=== PATIENT | female | born 2000 | race Caucasian/White ===

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

== ENCOUNTER → 2021-11-17 | Outpatient (CLI) | payer OTHER ==
--- NOTE | 2021-11-17 20:02 | NM ---
EXAMINATION TYPE: NM hepatobiliary w EF DATE OF EXAM: 11/17/2021 COMPARISON: None HISTORY: 21-year-old female R10.11, right upper quadrant pain. TECHNIQUE: After the intravenous administration of 4.4 mCi Tc 99m Mebrofenin hepatobiliary scintigrap hy is performed. Immediate images post injection. FINDINGS: There is satisfactory initial accumulation of tracer by the liver. The gallbladder is visualized wit hin 8 minutes. The small bowel activity is noted within 4 minutes. At one hour, 8 ounces of oral en sure plus is given to mimic CCK and gallbladder ejection fraction is calculated at 73 %, in the milton l range. IMPRESSION: No scintigraphic evidence for acute/chronic cholecystitis or biliary dyskinesia.
== END | disposition home or self-care (01) ==
LOC: RADNMMAIN 13:06
PROVIDERS: ATTEND Family Medicine
DX: R10.11 Right upper quadrant pain (principal)
CPT/HCPCS: 78226; A9537

== ENCOUNTER → 2022-01-08 | Outpatient (CLI) | payer OTHER ==
--- NOTE | 2022-01-09 07:56 | US ---
EXAMINATION TYPE: US gallbladder DATE OF EXAM: 01/08/2022 COMPARISON: Ultrasound abdomen August 21, 2017 CLINICAL HISTORY: K81.1 CHOLECYSTITIS. EXAM MEASUREMENTS: Liver Length: 15.1 cm Gallbladder Wall: 0.1 cm CBD: 0.4 cm Right Kidney: 10.2 x 5.0 x 4.7 cm Pancreas: Obscured by bowel gas Liver: Increased attenuation, decreased visualization of vessels suggestive of fatty infiltrate Gallbladder: Possible sludge Evidence for sonographic Alba's sign: no CBD: wnl Right Kidney: wnl Suboptimal evaluation of pancreas on initial images due to overlying bowel gas. IVC is seen near the hepatic dome. Visualized liver remains heterogeneously hyperechoic. Evaluation for focal masses subop timal due to the heterogeneity. No adjacent ascites. No right-sided hydronephrosis. Gallbladder not c ompletely anechoic could reflect small degree of sludge versus artifact, latter is favored. No shadow ing mobile gallstones. No pericholecystic fluid or abnormal gallbladder wall thickening. IMPRESSION: No shadowing mobile gallstones or ultrasound evidence for acute cholecystitis. Fatty infi ltrative hepatocellular disease is present and is new or more prominent from prior. Correlate clinica lly and with liver lab values.
== END | disposition home or self-care (01) ==
LOC: RADUSWWP 15:52
PROVIDERS: ATTEND Surgery
DX: K76.0 Fatty (change of) liver, not elsewhere classified (principal)
CPT/HCPCS: 76705

== ENCOUNTER 2022-02-09 06:03 | Day surgery (SDC) | payer OTHER ==
[2022-02-04 15:44] VITALS: BMI 44.2
[~2022-02-09 06:03] MED LIST: ACETAMINOPHEN TAB 500 MG TAB PO PRN; DEXAMETHASONE SOD PHOSPHATE 4 MG/ML 1 ML VIAL IV ONE; HEPARIN SODIUM,PORCINE/PF 5,000 UNIT/0.5 ML SYRINGE SQ PRN; LACTATED RINGERS 1,000 ML IV SCH; LIDOCAINE 1% (10MG/ML) FOR IV START INTRADERMA PRN; ONDANSETRON 4 MG/2 ML VIAL IVP ONE; SCOPOLAMINE 1 MG/72 HR PATCH TRANSDERM ONE
[2022-02-09] MEDS ORDERED: HYDROmorphone 0.5 MG/0.5 ML SYRINGE IVP PRN (07:00)
[2022-02-09 07:01] LABS: Basophils # (A) 0.1 k/uL (0-0.2); Basophils % (A) 1 %; Eosinophils # (A) 0.3 k/uL (0-0.7); Eosinophils % (A) 3 %; HCT 43.5 % (34.0-46.0); HGB 14.3 gm/dL (11.4-16.0); Lymphocytes # (A) 3.1 k/uL (1.0-4.8); Lymphocytes % (A) 32 %; MCH 29.9 pg (25.0-35.0); MCHC 32.8 g/dL (31.0-37.0); Mean Platelet Volume 7.7; Monocytes # (A) 0.7 k/uL (0-1.0); Monocytes % (A) 7 %; Neutrophils # (A) 5.3 k/uL (1.3-7.7); Neutrophils % (A) 55 %; Platelet Count 365 k/uL (150-450); RBC 4.78 m/uL (3.80-5.40); RDW 13.3 % (11.5-15.5); WBC 9.7 k/uL (3.8-10.6)
[2022-02-09 07:15] LABS: African American GFR (CKD) >90 (>60 ml/min/1.73 sqM); Anion Gap 7 mmol/L; Blood Urea Nitrogen 9 mg/dL (7-17); Calcium 9.5 mg/dL (8.4-10.2); Carbon Dioxide 24 mmol/L (22-30); Chloride 109 mmol/L (98-107); Glucose 92 mg/dL (74-99); Non-African American GFR(CKD) >90 (>60 ml/min/1.73 sqM); Potassium 3.8 mmol/L (3.5-5.1); Sodium 140 mmol/L (137-145)
[2022-02-09] MEDS ORDERED: BUPIVACAIN-EPI 0.25%-1:200,000 30 ML VIAL SQ ONE ×2 (07:40→08:17)
[2022-02-09] MEDS ORDERED: HYDROmorphone (PF) 1 MG/ML ONE (07:49)
[2022-02-09] MEDS ORDERED: fentaNYL (PF) 50 MCG/ML 2 ML AMP ONE (07:49)
[2022-02-09] MEDS ORDERED: PROPOFOL 10 MG/ML 20 ML VIAL IV ONE (07:49)
[2022-02-09] MEDS ORDERED: LIDOCAINE 2% INJ 20 MG/ML (2 ML VIAL) ONE (07:49)
[2022-02-09] MEDS ORDERED: NEOSTIGMINE 1 MG/ML 10 ML VIAL ONE (07:49)
[2022-02-09] MEDS ORDERED: ROCURONIUM 10 MG/ML (5 ML VIAL) IV ONE (07:49)
[2022-02-09] MEDS ORDERED: SUCCINYLCHOLINE CHLORIDE 200 MG/10 ML VIAL IV ONE (07:49)
[2022-02-09] MEDS ORDERED: LIDOCAINE 4% LTA KIT (4 ML) TOPICAL ONE (07:49)
[2022-02-09] MEDS ORDERED: MIDAZOLAM 2 MG/2 ML VIAL ONE (07:49)
[2022-02-09] MEDS ORDERED: GLYCOPYRROLATE 0.2 MG/ML 2 ML VIAL ONE (07:49)
[2022-02-09] MEDS ORDERED: ALBUTEROL HFA INHALER INHALATION ONE (07:49)
--- NOTE | 2022-02-09 08:40 | P.GSHP ---
History of Present Illness H&P Date: 02/09/22 Chief Complaint: Right upper quadrant pain The 21-year-old female with history of quadrant pain. Patient's found have biliary dyskinesia. She presents today for laparoscopic cholecystectomy. Past Medical History Past Medical History: Asthma, Cancer, GERD/Reflux, Sleep Apnea/CPAP/BIPAP Additional Past Medical History / Comment(s): Hx Leukemia in 2018. "Beginnings of Scoliosis and Arthritis, not officially diagnosed". No current CPAP use. History of Any Multi-Drug Resistant Organisms: None Reported Past Surgical History: Orthopedic Surgery Additional Past Surgical History / Comment(s): Bilateral urethral reimplantation, left foot reconstruction, multiple spinal taps. Past Anesthesia/Blood Transfusion Reactions: Motion Sickness Past Psychological History: Anxiety, Bipolar Additional Psychological History / Comment(s): Schizophrenia. Smoking Status: Never smoker Past Alcohol Use History: None Reported Past Drug Use History: Marijuana Additional Drug Use History / Comment(s): Marijuana use daily for pain. Aware no use 24 hrs prior to procedure. - Past Family History Mother Family Medical History: No Reported History Medications and Allergies Home Medications Medication Instructions Recorded Confirmed Type Albuterol Inhaler [Ventolin Hfa 1 - 2 puff INHALATION Q6H PRN 08/21/17 02/04/22 History Inhaler] Beclomethasone Dipropionate [Qvar 1 puff INHALATION BID 08/21/17 02/04/22 History 80 mcg] Advair (Unknown Dose) 1 puff INHALATION BID 02/04/22 02/04/22 History Albuterol Sulfate [Proair Hfa] 1 - 2 puff INHALATION BID 02/04/22 02/04/22 History Mometasone Furoate [Asmanex] 100 mcg IH BID 02/04/22 02/04/22 History Omeprazole [PriLOSEC] 40 mg PO HS 02/04/22 02/09/22 History Tiotropium 2.5 Mcg/Puff [Spiriva 1 puff INHALATION BID 02/04/22 02/04/22 History Respimat 2.5 Mcg] Allergies Allergy/AdvReac Type Severity Reaction Status Date / Time clindamycin Allergy Anaphylaxis Verified 02/09/22 06:16 nitrofurantoin Allergy Anaphylaxis Verified 02/09/22 06:16 Surgical - Exam Vital Signs Temp Pulse Resp BP Pulse Ox 98.2 F 102 H 20 131/88 97 02/09/22 06:28 02/09/22 06:28 02/09/22 06:28 02/09/22 06:28 02/09/22 06:28 - General well developed, well nourished, no distress - Eyes PERRL - ENT normal pinna - Neck no masses - Respiratory normal expansion - Cardiovascular Rhythm: regular - Abdomen Abdomen: soft, non tender Results - Labs 02/09/22 06:50 02/09/22 06:50 Abnormal Lab Results - Last 24 Hours (Table) 02/09/22 Range/Units 06:50 Chloride 109 H (98-107) mmol/L Diabetes panel 02/09/22 Range/Units 06:50 Sodium 140 (137-145) mmol/L Potassium 3.8 (3.5-5.1) mmol/L Chloride 109 H (98-107) mmol/L Carbon Dioxide 24 (22-30) mmol/L BUN 9 (7-17) mg/dL Creatinine 0.83 (0.52-1.04) mg/dL Glucose 92 (74-99) mg/dL Calcium 9.5 (8.4-10.2) mg/dL Calcium panel 02/09/22 Range/Units 06:50 Calcium 9.5 (8.4-10.2) mg/dL Pituitary panel 02/09/22 Range/Units 06:50 Sodium 140 (137-145) mmol/L Potassium 3.8 (3.5-5.1) mmol/L Chloride 109 H (98-107) mmol/L Carbon Dioxide 24 (22-30) mmol/L BUN 9 (7-17) mg/dL Creatinine 0.83 (0.52-1.04) mg/dL Glucose 92 (74-99) mg/dL Calcium 9.5 (8.4-10.2) mg/dL Adrenal panel 02/09/22 Range/Units 06:50 Sodium 140 (137-145) mmol/L Potassium 3.8 (3.5-5.1) mmol/L Chloride 109 H (98-107) mmol/L Carbon Dioxide 24 (22-30) mmol/L BUN 9 (7-17) mg/dL Creatinine 0.83 (0.52-1.04) mg/dL Glucose 92 (74-99) mg/dL Calcium 9.5 (8.4-10.2) mg/dL Assessment and Plan Assessment: Right upper quadrant pain Biliary dyskinesia We'll perform laparoscopic cholecystectomy
--- NOTE | 2022-02-09 08:42 | P.OP ---
Date of Procedure: 02/09/22 Preoperative Diagnosis: Biliary dyskinesia Postoperative Diagnosis: Biliary dyskinesia Procedure(s) Performed: Laparoscopic cholecystectomy Anesthesia: DINAH Surgeon: Ton Arreguin Estimated Blood Loss (ml): 5 Pathology: other (Gallbladder) Condition: stable Disposition: PACU Description of Procedure: The patient was placed on the operating table. The patient received a general endotracheal tube anesthesia. The patients abdomen was prepped and draped in the usual sterile fashion. Through an infraumbilical stab incision, the fascia of the anterior abdominal wall was grasped with a pair of Kochers and then the Veress needle was placed in the peritoneal cavity. Position of the Veress needle was confirmed with positive drop test. The abdomen was then insufflated. After adequate insufflation, the 10 mm trocar was placed in the peritoneal cavity. Following this the laparoscope was placed in the peritoneal cavity. The patient was placed in the head-up, right side up position and then a 5 mm trocar was placed in the right lateral and right subcostal position under direct visualization. A 8 mm trocar was placed in the epigastric position. The gallbladder was grasped in the fundus and infundibulum. Traction on the gallbladder was placed in the lateral and the cephalad positions. The triangle of Calot was visualized.. The cystic duct was bluntly dissected until the union of the cystic duct and common bile duct was seen. A critical view of safety was achieved. The cystic duct was then divided and sealed with the Harmonic scissors. A PDS Endoloop was then placed throughout the cystic duct stump. The cystic artery divided and sealed with the Harmonic scissors. The gallbladder was then removed from the liver bed using Harmonic scissors. The gallbladder was then extracted through the epigastric port site. Operative field was checked for any bleeding spots and Harmonic scissors was used to coagulate the liver bed. The abdomen was irrigated. The trocars were removed. The skin was closed using interrupted 3-0 Vicryl suture. Dermabond dressing were applied. The patient tolerated the procedure well.
[2022-02-09 08:54] VITALS: TEMP 97.1
[2022-02-09] MEDS ORDERED: LACTATED RINGERS 1,000 ML IV ONE (09:27)
[2022-02-09] MEDS ORDERED: ONDANSETRON 4 MG/2 ML VIAL ONE (09:56)
[2022-02-09] MEDS ORDERED: ONDANSETRON 4 MG/2 ML VIAL IVP ONE (09:58)
[2022-02-09] MEDS ORDERED: ALBUTEROL NEBULIZED (CONC) 5 MG, SODIUM CHLORIDE 0.9% NEBULIZ 3 ML INHALATION STA ×2 (10:59)
[2022-02-09] MEDS ORDERED: IBUPROFEN 200 MG TAB PO ONE (11:01)
[2022-02-09] MEDS ORDERED: ALBUTEROL NEB (CONC) 2.5 MG/0.5 ML INHALATION ONE (11:03)
[2022-02-09 11:47] VITALS: RESP 16
[2022-02-09 12:33] VITALS: PULSE 95
[2022-02-09 12:50] VITALS: BP 107/69
== END 2022-02-09 13:29 | disposition home or self-care (01) ==
LOC: OR 06:03
PROVIDERS: ATTEND Surgery
DX: K81.1 Chronic cholecystitis (principal); J45.909 Unspecified asthma, uncomplicated; K21.9 Gastro-esophageal reflux disease without esophagitis; G47.30 Sleep apnea, unspecified; F20.9 Schizophrenia, unspecified; Z85.6 Personal history of leukemia; Z79.51 Long term (current) use of inhaled steroids; Z79.899 Other long term (current) drug therapy; Z88.3 Allergy status to other anti-infective agents
CPT/HCPCS: 94640; 81025; 88304; 80048; 85025; 47562; J2250; J0330; J1100; J2710; J0690; J2405; J3010; J1170 ×2; J2704; J1644; J2001

== ENCOUNTER 2023-09-08 17:47 | Emergency (ER) | payer OTHER ==
--- NOTE | 2023-09-08 18:17 | ED ---
Fall HPI - General Source: patient, family, RN notes reviewed Mode of arrival: ambulatory Limitations: no limitations <Rani Wing - Last Filed: 09/08/23 18:16> - General Source: patient, family, RN notes reviewed, old records reviewed Mode of arrival: ambulatory Limitations: no limitations - History of Present Illness MD Complaint: fall -: days(s) Fall From: standing When Fall Occurred: 1-3 hours SOUS CHEF Fall Witnessed: yes, by family Place Fall Occurred: home Loss of Consciousness: none Prolonged Down Time?: no Symptoms Prior to Fall: none Location: head Severity: moderate Severity scale (1-10): 4 Quality: burning Context: tripped/slipped Associated Symptoms: headache, neck pain <Konstantin Lopez - Last Filed: 09/16/23 00:10> - General Stated Complaint: Fall, head injury Time Seen by Provider: 09/08/23 18:16 - History of Present Illness Initial Comments: Quick note: Patient is a 23-year-old female presented to ER with chief complaint of a head injury. She states she slipped on a trash bag on the floor and hit her head on the ground. Reports she blacked out. Denies any blood thinner use. Family states that she is acting extremely abnormal and having difficulty finding words. (Rani Wing) This is a 23-year-old female to the ER for evaluation of head injury, patient did fall hitting her head and blacked out. Patient complains of headache with loss of consciousness. Patient denies any other injury aside from hitting her head (Konstantin Lopez) - Related Data Home Medications Medication Instructions Recorded Confirmed Albuterol Inhaler [Ventolin Hfa 1 - 2 puff INHALATION Q6H PRN 08/21/17 02/04/22 Inhaler] Beclomethasone Dipropionate [Qvar 1 puff INHALATION BID 08/21/17 02/04/22 80 mcg] Advair (Unknown Dose) 1 puff INHALATION BID 02/04/22 02/04/22 Albuterol Sulfate [Proair Hfa] 1 - 2 puff INHALATION BID 02/04/22 02/04/22 Mometasone Furoate [Asmanex] 100 mcg IH BID 02/04/22 02/04/22 Omeprazole [PriLOSEC] 40 mg PO HS 02/04/22 02/09/22 Tiotropium 2.5 Mcg/Puff [Spiriva 1 puff INHALATION BID 02/04/22 02/04/22 Respimat 2.5 Mcg] Previous Rx's Medication Instructions Recorded Acetaminophen Tab [Tylenol] 650 mg PO Q6H #30 tab 02/09/22 Docusate [Colace] 100 mg PO BID #20 capsule 02/09/22 Ibuprofen [Motrin] 600 mg PO Q6HR PRN #40 tab 02/09/22 oxyCODONE HCL [OxyIR] 5 mg PO Q6H PRN 3 Days #10 tab 02/09/22 Allergies Allergy/AdvReac Type Severity Reaction Status Date / Time clindamycin Allergy Anaphylaxis Verified 09/08/23 18:45 nitrofurantoin Allergy Anaphylaxis Verified 09/08/23 18:45 Review of Systems ROS Other: All systems not noted in ROS Statement are negative. <Rani Wing - Last Filed: 09/08/23 18:16> ROS Other: All systems not noted in ROS Statement are negative. <Konstantin Lopez - Last Filed: 09/16/23 00:10> ROS Statement: Those systems with pertinent positive or pertinent negative responses have been documented in the HPI. Past Medical History Past Medical History: Asthma, Cancer, GERD/Reflux, Sleep Apnea/CPAP/BIPAP Additional Past Medical History / Comment(s): Hx Leukemia in 2018. "Beginnings of Scoliosis and Arthritis, not officially diagnosed". No current CPAP use. History of Any Multi-Drug Resistant Organisms: None Reported Past Surgical History: Orthopedic Surgery Additional Past Surgical History / Comment(s): Bilateral urethral reimplantation, left foot reconstruction, multiple spinal taps. Past Anesthesia/Blood Transfusion Reactions: Motion Sickness Past Psychological History: Anxiety, Bipolar Additional Psychological History / Comment(s): Schizophrenia. Smoking Status: Never smoker Past Alcohol Use History: None Reported Past Drug Use History: Marijuana Additional Drug Use History / Comment(s): Marijuana use daily for pain. Aware no use 24 hrs prior to procedure. - Past Family History Mother Family Medical History: No Reported History <Rani Wing - Last Filed: 09/08/23 18:16> General Exam <Rani Wing - Last Filed: 09/08/23 18:16> General appearance: alert, in no apparent distress Head exam: Present: atraumatic, normocephalic, normal inspection Eye exam: Present: normal appearance, PERRL, EOMI. Absent: scleral icterus, conjunctival injection, periorbital swelling ENT exam: Present: normal exam, mucous membranes moist Neck exam: Present: normal inspection. Absent: tenderness, meningismus, lymphadenopathy Respiratory exam: Present: normal lung sounds bilaterally. Absent: respiratory distress, wheezes, rales, rhonchi, stridor Cardiovascular Exam: Present: regular rate, normal rhythm, normal heart sounds. Absent: systolic murmur, diastolic murmur, rubs, gallop, clicks GI/Abdominal exam: Present: soft, normal bowel sounds. Absent: distended, tenderness, guarding, rebound, rigid Extremities exam: Present: normal inspection, full ROM, normal capillary refill. Absent: tenderness, pedal edema, joint swelling, calf tenderness Back exam: Present: normal inspection Neurological exam: Present: alert, oriented X3, CN II-XII intact Psychiatric exam: Present: normal affect, normal mood Skin exam: Present: warm, dry, intact, normal color. Absent: rash <Konstantin Lopez - Last Filed: 09/16/23 00:10> - General Exam Comments Initial Comments: Visual Physical Exam Vital signs reviewed General: Well-appearing, nontoxic, no acute distress. Head: Normocephalic, atraumatic Eyes: PERRLA, EOMI ENT: Airway patent Chest: Nonlabored breathing Skin: No visual rash, normal skin tone Neuro: Alert and oriented 3 Musculoskeletal: No gross abnormalities (Rani Wing) Course <Konstantin Lopez - Last Filed: 09/16/23 00:10> Vital Signs 09/08/23 18:41 Temperature 98.4 F Pulse Rate 59 L Respiratory 18 Rate Blood Pressure 154/98 O2 Sat by Pulse 100 Oximetry - Reevaluation(s) Reevaluation #1: Medical record is reviewed (Konstantin Lopez) Reevaluation #2: Patient symptoms are improved (Konstantin Lopez) Reevaluation #3: Patient informed of results and questions answered (Konstantin Lopez) Reevaluation #4: Was pt. sent in by a medical professional or institution (ALFREDO Leiva, MATERIAL ASSISTANT, urgent care, hospital, or usp...) When possible be specific @ -no Did you speak to anyone other than the patient for history (EMS, parent, family, police, friend...)? What history was obtained from this source @ -no Did you review nursing and triage notes (agree or disagree)? Why? @ -agree Are old charts reviewed (outside hosp., previous admission, EMS record, old EKG, old radiological studies, urgent care reports/EKG's, usp records)? Report findings @ -yes Differential Diagnosis (chest pain, altered mental status, abdominal pain women, abdominal pain men, vaginal bleeding, weakness, fever, dyspnea, syncope, headache, dizziness, GI bleed, back pain, seizure, CVA, palpatations, mental health, musculoskeletal)? @ -prior EKG interpreted by me (3pts min.). @ -yes X-rays interpreted by me (1pt min.). @ -yes negative for acute disease CT interpreted by me (1pt min.). @ -no U/S interpreted by me (1pt. min.). @ -no What testing was considered but not performed or refused? (CT, X-rays, U/S, labs)? Why? @ -none What meds were considered but not given or refused? Why? @ -none Did you discuss the management of the patient with other professionals (professionals i.e. ALFREDO Leiva, MATERIAL ASSISTANT, lab, RT, psych nurse, child protective services social worker, park warden, teacher, correction officer penit[facility]iary, director of casework)? Give summary @ -no Was smoking cessation discussed for >3mins.? @ -no Was critical care preformed (if so, how long)? @ -no Were there social determinants of health that impacted care today? How? (Homelessness, low income, unemployed, alcoholism, drug addiction, transportation, low edu. Level, literacy, decrease access to med. care, usp, rehab)? @ -none Was there de-escalation of care discussed even if they declined (Discuss DNR or withdrawal of care, Hospice)? DNR status @ -no What co-morbidities impacted this encounter? (DM, HTN, Smoking, COPD, CAD, Cancer, CVA, ARF, Chemo, Hep., AIDS, mental health diagnosis, sleep apnea, morbid obesity)? @ -none Was patient admitted / discharged? Hospital course, mention meds given and route, prescriptions, significant lab abnormalities, going to OR and other pertinent info. @ - Undiagnosed new problem with uncertain prognosis? @ -no Drug Therapy requiring intensive monitoring for toxicity (Heparin, Nitro, Insulin, Cardizem)? @ -no Were any procedures done? @ -no Diagnosis/symptom? @ - Acute, or Chronic, or Acute on Chronic? @ -Acute Uncomplicated (without systemic symptoms) or Complicated (systemic symptoms)? @ -Complicated Side effects of treatment? @ -no Exacerbation, Progression, or Severe Exacerbation? @ -exacerbation Poses a threat to life or bodily function? How? (Chest pain, [place], [place], pneumonia, PE, COPD, DKA, ARF, appy, cholecystitis, CVA, Diverticulitis, Homicidal, Suicidal, threat to staff... and all critical care pts) @ -yes (Konstantin Lopez) Reevaluation #5: Differential Headache: Migraine, tension, cluster, carbon monoxide, central venous thrombosis, pension karma temporal arteritis, acute closure glaucoma, intercranial hemorrhage, mastoiditis, sinusitis, head injury, this is not meant to be an all-inclusive list. (Konstantin Lopez) Medical Decision Making <Rani Wing - Last Filed: 09/08/23 18:16> - Radiology Data Radiology results: report reviewed (CT brain C-spine is negative for acute disease), image reviewed <Konstantin Lopez - Last Filed: 09/16/23 00:10> - Medical Decision Making I performed the quick note portion of this chart. Electronically signed by Rani Wing PA-C (Rani Wing) 23 female to the ER for evaluation of headache with head injury. No acute traumatic injury found here in the ER patient can be discharged home (Konstantin Lopez) Disposition <Rani Wing - Last Filed: 09/08/23 18:16> Is patient prescribed a controlled substance at d/c from ED?: No Time of Disposition: 20:10 <Konstantin Lopez - Last Filed: 09/16/23 00:10> Clinical Impression: Closed head injury, Fall Disposition: HOME SELF-CARE Condition: Good Instructions (If sedation given, give patient instructions): Head Injury (ED) Referrals: Nitesh Stacy MD [Primary Care Provider] - 1-2 days
[2023-09-08 19:00] VITALS: BP 154/98; PULSE 59; RESP 18; TEMP 98.4
--- NOTE | 2023-09-08 19:47 | CT ---
EXAMINATION TYPE: CT brain cspine wo con DATE OF EXAM: 09/08/2023 COMPARISON: NONE HISTORY: Fall. LOC. CT DLP: 1545 mGycm. Automated Exposure Control for Dose Reduction was Utilized. TECHNIQUE: CT scan of the head and cervical spine are performed without contrast. FINDINGS: There is no skull fracture or acute intracranial hemorrhage. No mass effect or midline shif t, no definite acute attenuation defect. The globes are intact and the paranasal sinuses and middle e ar cavities and mastoid sinus air cells are clear. Cervical spine is negative for acute fracture or malalignment. Cervical spine straightening is noted. No significant incidental findings. IMPRESSION: CT Head: No acute process. CT Cervical Spine: Cervical spine straightening noted, but negative for fracture or malalignment.
== END 2023-09-08 20:31 | disposition home or self-care (01) ==
LOC: EC 17:47
DX: S09.90XA Unspecified injury of head, initial encounter (principal); K21.9 Gastro-esophageal reflux disease without esophagitis; J45.909 Unspecified asthma, uncomplicated; F12.90 Cannabis use, unspecified, uncomplicated; Z88.8 Allergy status to other drugs, medicaments and biological substances; Z88.1 Allergy status to other antibiotic agents; W18.09XA Striking against other object with subsequent fall, initial encounter
CPT/HCPCS: 70450; 72125; 99284

== ENCOUNTER → 2023-11-08 | Outpatient (CLI) | payer OTHER ==
--- NOTE | 2023-11-08 10:59 | US ---
EXAMINATION TYPE: US abdomen complete DATE OF EXAM: 11/08/2023 COMPARISON: US 2021 CLINICAL INDICATION: Female, 23 years old with history of N94.10 UNSPECIFIED DYSPAREUNIA; Hx cholecys tectomy in 2021. Hx of bilateral ureteral surgery in 2002. TECHNIQUE: Multiple sonographic images of the abdomen are obtained. FINDINGS: EXAM MEASUREMENTS: Liver Length: 14.9 cm Gallbladder Wall: Surgically absent CBD: 0.3 cm Spleen: 9.5 cm Right Kidney: 10.0 x 4.6 x 4.5 cm Left Kidney: 11.8 x 5.8 x 5.6 cm CATTLE RANCHER NOTES: Exam is limited due to gas. Pancreas: Not well seen Liver: Appears very coarse/very heterogeneous in echotexture. Gallbladder: Surgically absent Evidence for sonographic Alba's sign: No CBD: Appears wnl Spleen: Lobulated contour Right Kidney: Renal pelvis appears dilated. Left Kidney: Renal pelvis appears dilated. Upper IVC: Appears wnl Abd Aorta: Portions seen appear wnl, iliacs were obscured. IMPRESSION: 1. No evidence for acute process 2. Heterogenous liver echotexture suggestive of hepatocellular disease disease correlate with serum markers.
--- NOTE | 2023-11-08 13:42 | US ---
EXAMINATION TYPE: US pelvis complete transvag DATE OF EXAM: 11/08/2023 COMPARISON: US 2012 CLINICAL INDICATION: Female, 23 years old with history of N94.10 UNSPECIFIED DYSPAREUNIA; Dyspareunia . G0. TECHNIQUE: Transvaginal (TV) and Transabdominal (TA) . Transabdominal sonographic images of the pel vis were acquired. Transvaginal sonographic images were medically necessary to better assess the fol lowing anatomy: ovaries, endometrium Date of LMP: 11/02/2023 EXAM MEASUREMENTS: Uterus: 5.8 x 4.0 x 3.3 cm Endometrial Stripe: 0.40 cm Right Ovary: 4.0 x 2.6 x 2.4 cm Left Ovary: 3.2 x 2.1 x 1.6 cm 1. Uterus: Retroverted Appears heterogeneous 2. Endometrium: Measures 0.4 cm 3. Right Ovary: Follicles noted.*Septated anechoic area seen: 1.5 x 1.0 x 1.1 cm. 4. Left Ovary: Follicles noted 5. Bilateral Adnexa: Free fluid seen within the right adnexa. 6. Posterior cul-de-sac: Free fluid seen within IMPRESSION: 1. No evidence for acute process. 2. Endometrium within normal limits for thickness. 3. Multiple peripheral follicles noted bilaterally compatible with polycystic ovarian morphology
== END | disposition home or self-care (01) ==
LOC: RADUSWWP 08:32
PROVIDERS: ATTEND Family Medicine
DX: K76.89 Other specified diseases of liver (principal); N94.10 Unspecified dyspareunia; Z90.49 Acquired absence of other specified parts of digestive tract; Z98.890 Other specified postprocedural states
CPT/HCPCS: 76700; 76830; 76856

== ENCOUNTER 2023-12-08 22:40 | Emergency (ER) | payer OTHER ==
[2023-12-08 22:46] VITALS: TEMP 98.7
--- NOTE | 2023-12-08 23:23 | ED ---
ENT HPI - General Chief complaint: ENT Stated complaint: throat pain CINDY Time Seen by Provider: 12/08/23 23:22 Source: patient Mode of arrival: wheelchair Limitations: no limitations - History of Present Illness Initial comments: 23-year-old female presenting with chief complaint of sore throat. States that symptoms started on December 01. She states that since then she has had many tonsil stone's and general redness and pain to the throat. She was concerned that she may have seen some white spots on her tonsils today. She reports pain with swallowing. She is having no difficulty breathing. She is able to drink water. No voice changes. No fever. No drooling. No cough or congestion. - Related Data Home Medications Medication Instructions Recorded Confirmed Albuterol Inhaler [Ventolin Hfa 1 - 2 puff INHALATION Q6H PRN 08/21/17 02/04/22 Inhaler] Beclomethasone Dipropionate [Qvar 1 puff INHALATION BID 08/21/17 02/04/22 80 mcg] Advair (Unknown Dose) 1 puff INHALATION BID 02/04/22 02/04/22 Albuterol Sulfate [Proair Hfa] 1 - 2 puff INHALATION BID 02/04/22 02/04/22 Mometasone Furoate [Asmanex] 100 mcg IH BID 02/04/22 02/04/22 Omeprazole [PriLOSEC] 40 mg PO HS 02/04/22 02/09/22 Tiotropium 2.5 Mcg/Puff [Spiriva 1 puff INHALATION BID 02/04/22 02/04/22 Respimat 2.5 Mcg] Previous Rx's Medication Instructions Recorded Acetaminophen Tab [Tylenol] 650 mg PO Q6H #30 tab 02/09/22 Docusate [Colace] 100 mg PO BID #20 capsule 02/09/22 Ibuprofen [Motrin] 600 mg PO Q6HR PRN #40 tab 02/09/22 oxyCODONE HCL [OxyIR] 5 mg PO Q6H PRN 3 Days #10 tab 02/09/22 Amoxicillin 500 mg PO BID 7 Days #14 capsule 12/09/23 Allergies Allergy/AdvReac Type Severity Reaction Status Date / Time clindamycin Allergy Anaphylaxis Verified 12/08/23 22:46 nitrofurantoin Allergy Anaphylaxis Verified 12/08/23 22:46 Review of Systems ROS Statement: Those systems with pertinent positive or pertinent negative responses have been documented in the HPI. ROS Other: All systems not noted in ROS Statement are negative. Past Medical History Past Medical History: Asthma, Cancer, GERD/Reflux, Sleep Apnea/CPAP/BIPAP Additional Past Medical History / Comment(s): Hx Leukemia in 2018. "Beginnings of Scoliosis and Arthritis, not officially diagnosed". No current CPAP use. PCOS History of Any Multi-Drug Resistant Organisms: None Reported Past Surgical History: Orthopedic Surgery Additional Past Surgical History / Comment(s): Bilateral urethral reimplantation, left foot reconstruction, multiple spinal taps. Past Anesthesia/Blood Transfusion Reactions: Motion Sickness Past Psychological History: Anxiety, Bipolar Smoking Status: Never smoker Past Alcohol Use History: None Reported Past Drug Use History: Marijuana - Past Family History Mother Family Medical History: No Reported History General Exam - General Exam Comments Initial Comments: Visual Physical Exam Vital signs reviewed General: Well-appearing, nontoxic, no acute distress. Head: Normocephalic, atraumatic Eyes: PERRLA, EOMI ENT: Airway patent Chest: Nonlabored breathing Skin: No visual rash, normal skin tone Neuro: Alert and oriented 3 Musculoskeletal: No gross abnormalities Limitations: no limitations General appearance: alert, in no apparent distress Head exam: Present: atraumatic, normocephalic Eye exam: Present: normal appearance, EOMI Expanded Throat exam: tonsillar erythema, other (No midline shift). negative: tonsillar exudate Neck exam: Present: normal inspection, lymphadenopathy. Absent: meningismus Respiratory exam: Present: normal lung sounds bilaterally. Absent: respiratory distress, wheezes, rales, rhonchi, stridor Cardiovascular Exam: Present: regular rate, normal rhythm, normal heart sounds. Absent: systolic murmur, diastolic murmur, rubs, gallop, clicks Neurological exam: Present: alert, oriented X3 Psychiatric exam: Present: normal affect, normal mood Skin exam: Present: normal color Course Vital Signs 12/08/23 12/09/23 22:43 01:04 Temperature 98.7 F Pulse Rate 101 H 70 Respiratory 20 18 Rate Blood Pressure 146/80 127/88 O2 Sat by Pulse 99 99 Oximetry Medical Decision Making - Medical Decision Making I performed the quick note portion of this visit, electronically signed Maloree Gurrola PA-C Was pt. sent in by a medical professional or institution (ALFREDO Leiva, LEGAL ADMINISTRATOR, urgent care, hospital, or [facility]...) When possible be specific @ -No Did you speak to anyone other than the patient for history (EMS, parent, family, police, friend...)? What history was obtained from this source @ -No Did you review nursing and triage notes (agree or disagree)? Why? @ -I reviewed and agree with nursing and triage notes Were old charts reviewed (outside hosp., previous admission, EMS record, old EKG, old radiological studies, urgent care reports/EKG's, [facility] records)? Report findings @ -No old charts were reviewed Differential Diagnosis (chest pain, altered mental status, abdominal pain women, abdominal pain men, vaginal bleeding, weakness, fever, dyspnea, syncope, headache, dizziness, GI bleed, back pain, seizure, CVA, palpatations, mental health, musculoskeletal)? @ -Differential includes viral pharyngitis, strep pharyngitis, epiglottitis, peritonsillar abscess, this is not an all-inclusive list EKG interpreted by me (3pts min.). @ -As above X-rays interpreted by me (1pt min.). @ -Soft tissue neck x-ray shows no suspicious prevertebral soft tissue swelling. Straightening of cervical spine is present. Region of epiglottis and vallecula appears within normal limits. No suspicious narrowing of the subglottic airway at the frontal view. Overlying soft tissue is unremarkable CT interpreted by me (1pt min.). @ -None done U/S interpreted by me (1pt. min.). @ -None done What testing was considered but not performed or refused? (CT, X-rays, U/S, labs)? Why? @ -None What meds were considered but not given or refused? Why? @ -None Did you discuss the management of the patient with other professionals (professionals i.e. ALFREDO Leiva, LEGAL ADMINISTRATOR, lab, RT, psych nurse, director of social services, sourcer, teacher, operations officer afloat, shoe caser)? Give summary @ -No Was smoking cessation discussed for >3mins.? @ -No Was critical care preformed (if so, how long)? @ -No Were there social determinants of health that impacted care today? How? (Homelessness, low income, unemployed, alcoholism, drug addiction, transportation, low edu. Level, literacy, decrease access to med. care, retirement, rehab)? @ -No Was there de-escalation of care discussed even if they declined (Discuss DNR or withdrawal of care, Hospice)? DNR status @ -No What co-morbidities impacted this encounter? (DM, HTN, Smoking, COPD, CAD, Cancer, CVA, ARF, Chemo, Hep., AIDS, mental health diagnosis, sleep apnea, morbid obesity)? @ -None Was patient admitted / discharged? Hospital course, mention meds given and route, prescriptions, significant lab abnormalities, going to OR and other pertinent info. @ -23-year-old female presenting with chief complaint of sore throat ongoing for 1 week. On physical exam there is no midline shift. She does have erythematous posterior pharynx. No trismus. No muffled voice or drooling. She is negative for influenza, RSV, COVID, group A strep. Soft tissue neck x-ray. Throat culture sent out.. Treated with Decadron and amoxicillin. Discharged follow-up with PCP. Report back to ER with any new or worsening symptoms. Discussed return parameters and answered all questions. Patient conveyed verbal understanding and agreed to the plan. I discussed this case in detail with my attending Dr. Melton Undiagnosed new problem with uncertain prognosis? @ -No Drug Therapy requiring intensive monitoring for toxicity (Heparin, Nitro, Insulin, Cardizem)? @ -No Were any procedures done? @ -No Diagnosis/symptom? @ -Pharyngitis Acute, or Chronic, or Acute on Chronic? @ -Acute Uncomplicated (without systemic symptoms) or Complicated (systemic symptoms)? @ -Uncomplicated Side effects of treatment? @ -No Exacerbation, Progression, or Severe Exacerbation? @ -No Poses a threat to life or bodily function? How? (Chest pain, [place], [place], pneumonia, PE, COPD, DKA, ARF, appy, cholecystitis, CVA, Diverticulitis, Homicidal, Suicidal, threat to staff... and all critical care pts) @ -Unlikely - Lab Data Lab Results 12/08/23 12/08/23 Range/Units 22:48 22:48 Influenza Type A (PCR) Not Detected (Not Detectd) Influenza Type B (PCR) Not Detected (Not Detectd) RSV (PCR) Not Detected (Not Detectd) SARS-CoV-2 (PCR) Not Detected (Not Detectd) Group A Strep (PCR) NOT DETECTED (Not Detectd) Disposition Clinical Impression: Pharyngitis Disposition: HOME SELF-CARE Condition: Good Instructions (If sedation given, give patient instructions): Pharyngitis (ED) Additional Instructions: Follow-up with PCP. Report back to ER with any new or worsening symptoms. Prescriptions: Amoxicillin 500 mg PO BID 7 Days #14 capsule Is patient prescribed a controlled substance at d/c from ED?: No Referrals: Nelly Rizvi MD [Primary Care Provider] - 1-2 days Time of Disposition: 01:01
--- NOTE | 2023-12-08 23:36 | XR ---
EXAMINATION TYPE: XR soft tissue neck DATE OF EXAM: 12/08/2023 COMPARISON: NONE HISTORY: Difficulty swallowing. Sore throat for one week. TECHNIQUE: 2 view soft tissue neck. FINDINGS: No suspicious prevertebral soft tissue swelling. Straightening of cervical spine is present . Region of epiglottis and vallecula appears within normal limits. No suspicious narrowing of the sub glottic airway on the frontal view. Overlying soft tissue is unremarkable. IMPRESSION: As above. Patent airway noted.
[2023-12-09] MEDS: DEXAMETHASONE SOD PHOSPHATE 10 MG/ML 1 ML VIAL IM STA (00:09)
[2023-12-09] MEDS: AMOXICILLIN 500MG STARTER PACK 3 CAP BTL PO STA (01:01)
[2023-12-09 01:06] VITALS: BP 127/88; PULSE 70; RESP 18
== END 2023-12-09 01:17 | disposition home or self-care (01) ==
LOC: EC 22:40
DX: J02.9 Acute pharyngitis, unspecified (principal); Z88.8 Allergy status to other drugs, medicaments and biological substances
CPT/HCPCS: 70360; 87070; 87636; 87651; 96372; 99283